=== PATIENT | female | born 1995 | race Caucasian/White ===

== ENCOUNTER → 2019-04-17 | Outpatient (CLI) | payer OTHER | END | disposition home or self-care (01) | LOC: LAB SHORT 08:40 → LAB SRC 08:40 | DX: Z11.3 Encounter for screening for infections with a predominantly sexual mode of transmission (principal); Z13.1 Encounter for screening for diabetes mellitus; R10.9 Unspecified abdominal pain; R53.83 Other fatigue | CPT/HCPCS: 87338 ==

== ENCOUNTER 2019-10-10 08:10 | Day surgery (SDC) | payer OTHER ==
[~2019-10-10] VITALS: Ht 167.6 cm; Wt 63.0 kg
[2019-10-10] MEDS ORDERED: Aviane1 EACH (08:42)
[2019-10-10] MEDS ORDERED: IBUP800 (08:43)
[2019-10-10] MEDS ORDERED: HYOS.125 (08:43)
[2019-10-10] MEDS ORDERED: OMEP20ER (08:43)
== END 2019-10-10 10:19 | disposition home or self-care (01) ==
LOC: ORSCSDS 08:10
PROVIDERS: Internal Medicine Gastroenterology
PROC: 0DB98ZX Excision of Duodenum, Via Natural or Artificial Opening Endoscopic, Diagnostic (ICD-10-PCS; principal; 2019-10-10 09:30)
PROC: 0DB68ZX Excision of Stomach, Via Natural or Artificial Opening Endoscopic, Diagnostic (ICD-10-PCS; principal; 2019-10-10 09:30)
DX: R19.4 Change in bowel habit (principal); R10.13 Epigastric pain; K29.70 Gastritis, unspecified, without bleeding; Z79.899 Other long term (current) drug therapy
CPT/HCPCS: J2704; J7120

== ENCOUNTER 2022-09-09 11:41 | Day surgery (SDC) | payer BC, OTHER ==
[~2022-09-09] VITALS: Ht 167.6 cm; Wt 78.8 kg
[~2022-09-09 11:41] MED LIST: Aviane1 EACH; HYOS.125; IBUP800; OMEP20ER
[2022-09-09] MEDS ORDERED: Amitriptyline H10 MG (12:08)
[2022-09-09] MEDS ORDERED: Bentyl10 MG (12:08)
--- NOTE | 2022-09-09 13:07 | NUR ---
09/09/22 1307 MATHEW FIORE PB CUFF SWITCHED TO WRIST AT 1304.
[2022-09-09 13:29] VITALS: BP 116/80
== END 2022-09-09 13:34 | disposition home or self-care (01) ==
LOC: ORSCSDS 11:41
PROVIDERS: Student in an Organized Health Care Education/Training Program
PROC: 0DBG8ZX Excision of Left Large Intestine, Via Natural or Artificial Opening Endoscopic, Diagnostic (ICD-10-PCS; principal; 2022-09-09 13:00)
PROC: 0DBF8ZX Excision of Right Large Intestine, Via Natural or Artificial Opening Endoscopic, Diagnostic (ICD-10-PCS; principal; 2022-09-09 13:00)
DX: R19.4 Change in bowel habit (principal); R10.84 Generalized abdominal pain; K58.0 Irritable bowel syndrome with diarrhea; Z79.899 Other long term (current) drug therapy
CPT/HCPCS: 88305; J2250; J2704; J7120

== ENCOUNTER → 2023-04-29 | Outpatient (CLI) | payer BC ==
[~2023-04-29] MED LIST changes: +Amitriptyline H10 MG; +Bentyl10 MG
== END ==
LOC: LAB SHORT 17:01 → LAB 17:01
DX: N39.0 Urinary tract infection, site not specified (principal)
CPT/HCPCS: 87086

== ENCOUNTER → 2025-01-08 | Outpatient (CLI) | payer OTHER | END | disposition home or self-care (01) | LOC: LAB SHORT 07:16 → LAB 07:16 | DX: N87.9 Dysplasia of cervix uteri, unspecified (principal); Q51.828 Other congenital malformations of cervix | CPT/HCPCS: 88305 ==

== ENCOUNTER → 2025-03-20 | Outpatient (CLI) | payer OTHER | LOC: LAB SHORT 17:00 → LAB 17:00 | DX: N39.0 Urinary tract infection, site not specified (principal) | CPT/HCPCS: 87086 ==